=== PATIENT | male | born 1975 | race Caucasian/White ===

== ENCOUNTER 2018-06-15 09:37 | Observation (INO) ==
[2018-06-15] MEDS ORDERED: Isovue-370 500 ML INFUS..BTL IV ONE ×3 (09:43→11:03)
[2018-06-15] MEDS ORDERED: *HR* HYDROmorphone (PF) 1 MG/ML SYRINGE IVP ONE ×3 (09:45→12:24)
--- NOTE | 2018-06-15 09:51 | Emergency Department Note ---
Disposition Clinical Impression: Kidney stone Chest pain Qualifiers: Chest pain type: unspecified Qualified Code(s): R07.9 - Chest pain, unspecified Back pain Qualifiers: Back pain location: low back pain Chronicity: acute Back pain laterality: left Sciatica presence: without sciatica Qualified Code(s): M54.5 - Low back pain Disposition: Admitted As Inpatient Condition: Good Instructions: Chest Pain (ED), Flank Pain (ED), Kidney Stones (ED) Referrals: NONE,PCP [Non-Partnered Physician] - Forms: ED Satisfaction Letter Time of Disposition: 12:15 General Adult HPI - General Stated complaint: CP Time Seen by Provider: 06/15/18 09:42 Source: patient Limitations: no limitations Nursing Notes Reviewed: Yes Vital Signs Reviewed: Yes - History of Present Illness HPI Narrative: Patient is a 42-year-old male that presents emergency department due to chest pain. Patient states that this started just prior to arrival. Patient states that it was a 10 out of 10 prior to getting in the ambulance. Patient was given nitroglycerin and aspirin during transport. Patient states his did not really provide any relief. Patient states that his chest pain goes into his back. Patient also states that he is having significant low back pain. Patient states that he has been short of breath, diaphoretic and nauseated with his chest pain. Patient denies any other history of cardiac issues. Patient denies having a stress test or cardiac catheterization in the past. Pain Scale: 10 - Related Data Previous Rx's Medication Instructions Recorded Cyclobenzaprine [Flexeril] 10 mg PO BID #20 tablet 05/02/18 Meloxicam [Mobic] 7.5 mg PO BID #20 tablet 05/02/18 Allergies Allergy/AdvReac Type Severity Reaction Status Date / Time Penicillins AdvReac Rash Verified 05/02/18 11:17 All systems ED: reviewed and negative except as stated. Constitutional: Reports: other (Sweaty) Cardiovascular: Reports: chest pain Respiratory: Reports: dyspnea Gastrointestinal: Reports: nausea Musculoskeletal: Reports: back pain Past Medical History - Past Medical History Medical history: Reports: no medical history Psychiatric history: Reports: no psych history - Social History Smoking Status: Current every day smoker Smokeless Tobacco Status: No Alcohol use: Reports: rarely Drug use: Reports: none Physical Exam - General Limitations: no limitations General appearance: alert, anxious - Head Head exam: atraumatic, normocephalic - Eye Eye exam: Present: normal appearance, EOMI - Neck Neck exam: Present: normal inspection, full ROM, trachea midline - Chest Chest inspection: Present: normal inspection, symmetric chest wall rise - Respiratory Respiratory exam: Present: normal lung sounds bilaterally. Absent: respiratory distress, wheezes - Cardiovascular Cardiovascular exam: Present: normal rhythm, tachycardia, normal heart sounds, +S1, +S2 - Abdominal Exam Abdominal exam: Present: soft, Non-Tender, normal bowel sounds - Neurological Exam Neurological exam: Present: alert, oriented X3 - Psychiatric Psychiatric exam: Present: normal affect, anxious - Skin Skin exam: Present: warm, dry, intact Course Vital Signs Temperature 98.1 F 06/15/18 09:40 Pulse Rate 75 06/15/18 09:40 Respiratory Rate 20 06/15/18 09:40 Blood Pressure 148/101 06/15/18 09:40 O2 Sat by Pulse Oximetry 100 06/15/18 09:40 Temperature 98.1 F 06/15/18 09:40 Pulse Rate 68 06/15/18 11:11 Respiratory Rate 20 06/15/18 09:40 Blood Pressure 156/96 06/15/18 11:11 O2 Sat by Pulse Oximetry 98 06/15/18 11:11 Oxygen Delivery Oxygen Delivery Room Air Medical Decision Making - [facility] Narrative Medical decision making narrative: Due the patient's into the emergency department with significant chest pain and low back pain is concern for possible cardiac involvement. We will obtain a chest pain workup including a CBC, BMP, troponin chest x-ray and EKG. Due to the patient having chest pain plus low back pain that is been excruciating and pain radiating into his back there is concern for possible aortic dissection. We will obtain CTA of the chest abdomen pelvis to evaluate for possible dissection. Patient's laboratory testing was relatively unremarkable other than a mild leukocytosis of 11.3. However this is a nonspecific finding. EKG did not show any acute ischemic changes. Patient was found to have a 9 mm stone on the left. There is mild obstruction. I called and spoke with the on-call urologist Dr. Deyr and he was in agreement with the patient being admitted to medicine with a urology consult. Called and spoke the admitting hospitalist Dr. Alarcon and she is accepted the patient to their service. Patient be admitted to the hospital at this time for further evaluation and management. - Medical Records Medical records reviewed: Yes I reviewed the patient's medical records. - Lab Data Lab results reviewed: Yes I reviewed the patient's lab results. Result diagrams: 06/15/18 09:53 06/15/18 10:02 Lab Results 06/15/18 06/15/18 06/15/18 Range/Units 09:43 09:53 10:02 WBC 11.3 H (4.3-11.1) K/mcL RBC 4.66 (4.19-5.50) M/mcL Hgb 15.4 (12.9-16.9) g/dL Hct 44.8 (37.5-50.1) % MCV 96.1 (83.0-100.0) fL MCH 33.0 (28.0-33.3) pg MCHC 34.4 (31.6-35.5) g/dL RDW 13.0 (11.5-14.5) % Plt Count 215 (140-400) K/mcL MPV 10.5 (9.4-12.4) fL Immature Gran % 0.5 (0-4) % Seg Neutrophils % 79.2 % Lymphocytes % 12.0 % Monocytes % 7.0 % Eosinophils % 0.9 % Basophils % 0.4 % Neutrophils # 8.9 (1.6-8.9) K/mcL Lymphocytes # 1.4 (0.6-4.6) K/mcL Monocytes # 0.8 (0.0-1.3) K/mcL Eosinophils # 0.1 (0.0-0.6) K/mcL Basophils # 0.1 (0.0-0.2) K/mcL PT 11.1 (9.4-12.1) Seconds INR 1.0 APTT 28.0 (26.0-36.0) Seconds Sodium 138 (136-145) mEq/L Potassium 3.9 (3.5-5.1) mEq/L Chloride 106 (98-107) mEq/L Carbon Dioxide 25 (23-29) mEq/L BUN 15 (6-20) mg/dL Creatinine 1.18 (0.70-1.30) mg/dL Est GFR ( Amer) > 60 (> 60) Est GFR (Non-Af Amer) > 60 (> 60) BUN/Creatinine Ratio 13 (6-26) Glucose 114 H (70-105) mg/dL Calculated Osmolality 288 (280-300) Calcium 8.9 (8.6-10.3) mg/dL Troponin I < 0.03 (< 0.04) ng/mL - Radiology Data Radiology results reviewed: Yes I reviewed the patient's radiology results. Abdomen/Pelvis CTA 06/15/18 09:43 IMPRESSION: No acute abnormalities to the aorta. Specifically no evidence for aortic aneurysm or dissection. 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 This likely accounts for the abnormality noted on the chest x-ray earlier today. There is a 9 mm stone to the proximal left ureter just distal to the left UPJ with mild obstructive uropathy proximal to this. No acute findings to the chest. D/ / 06/15/2018 11:42:01 João Key MD / sergio Interpreting Provider: João Key MD Chest CTA 06/15/18 09:43 IMPRESSION: No acute abnormalities to the aorta. Specifically no evidence for aortic aneurysm or dissection. 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 This likely accounts for the abnormality noted on the chest x-ray earlier today. There is a 9 mm stone to the proximal left ureter just distal to the left UPJ with mild obstructive uropathy proximal to this. No acute findings to the chest. D/ / 06/15/2018 11:42:01 João Key MD / sergio Interpreting Provider: João Key MD Chest X-Ray 06/15/18 09:43 IMPRESSION: Right paratracheal soft tissue prominence may relate to vascular pedicle. Neoplastic process or lymphadenopathy cannot be excluded. Suggest further evaluation with CT chest with IV contrast. No acute cardiopulmonary process noted. D/ : / 06/15/2018 10:44:08 João Key MD / mitchell Interpreting Provider: João Key MD - EKG Data EKG #1 EKG attestation: Yes I reviewed and interpreted this EKG. EKG results narrative: EKG showed a sinus rhythm at a rate of 65 bpm, NJ interval 134, QRS duration of 86, QTc of 379 with a normal axis. There is no evidence of STEMI on EKG. This is compared with previous EKG on 01/17/97. No evidence of acute ischemic changes between these 2 EKGs.
--- NOTE | 2018-06-15 10:16 | Emergency Department Note ---
Disposition Clinical Impression: Chest pain Qualifiers: Chest pain type: unspecified Qualified Code(s): R07.9 - Chest pain, unspecified Disposition: Still a Patient Referrals: NONE,PCP [Primary Care Provider] - General Adult HPI - General Chief complaint: ED Chest Pain Stated complaint: CP Time Seen by Provider: 06/15/18 09:42 Source: patient Limitations: no limitations - History of Present Illness HPI Narrative: Attestation note ED attending note I examined this patient and my medical decision-making was reviewed with the emergency medicine resident Dr. Norbert Ward. I agree with the documented findings, disposition and treatment plan as described except to the extent set forth below. Briefly: 5-year-old male no prior cardiac history or vascular history presents via EMS for acute onset of chest and low back pain. He was given aspirin and nitroglycerin per EMS reviewed EKG transmitted from the field which was personal quality but no acute ST segment elevation or depressions. Patient has slightly elevated blood pressure without history of vascular disease in the family per se. Patient with an EKG 11 CT anterior chest abdomen and pelvis to check for aortic dissection although is possible he got 1 mg IV Dilaudid is getting screening labs and a chest x-ray as well. Providing 30 minutes critical care service with this patient disposition pending. Pain Scale: 10 - Related Data Previous Rx's Medication Instructions Recorded Cyclobenzaprine [Flexeril] 10 mg PO BID #20 tablet 05/02/18 Meloxicam [Mobic] 7.5 mg PO BID #20 tablet 05/02/18 Allergies Allergy/AdvReac Type Severity Reaction Status Date / Time Penicillins AdvReac Rash Verified 05/02/18 11:17 Constitutional: Reports: other (Sweaty) Cardiovascular: Reports: chest pain Respiratory: Reports: dyspnea Gastrointestinal: Reports: nausea Musculoskeletal: Reports: back pain Past Medical History - Past Medical History Medical history: Reports: no medical history Psychiatric history: Reports: no psych history - Social History Smoking Status: Current every day smoker Smokeless Tobacco Status: No Alcohol use: Reports: rarely Drug use: Reports: none Physical Exam - General Limitations: no limitations General appearance: alert, anxious Course Vital Signs Temperature 98.1 F 06/15/18 09:40 Pulse Rate 75 06/15/18 09:40 Respiratory Rate 20 06/15/18 09:40 Blood Pressure 148/101 06/15/18 09:40 O2 Sat by Pulse Oximetry 100 06/15/18 09:40 Temperature 98.1 F 06/15/18 09:40 Pulse Rate 75 06/15/18 09:40 Respiratory Rate 20 06/15/18 09:40 Blood Pressure 139/95 06/15/18 09:55 O2 Sat by Pulse Oximetry 99 06/15/18 09:49 Oxygen Delivery Oxygen Delivery Room Air
[2018-06-15 10:27] LABS: Basophils # 0.1 K/mcL (0.0-0.2); Basophils % 0.4 %; Eosinophils # 0.1 K/mcL (0.0-0.6); Eosinophils % 0.9 %; Hematocrit 44.8 % (37.5-50.1); Hemoglobin 15.4 g/dL (12.9-16.9); Immature Granulocytes % 0.5 % (0-4); Lymphocytes # 1.4 K/mcL (0.6-4.6); Mean Corpuscular HGB Conc 34.4 g/dL (31.6-35.5); Mean Corpuscular Volume 96.1 fL (83.0-100.0); Mean Platelet Volume 10.5 fL (9.4-12.4); Monocytes # 0.8 K/mcL (0.0-1.3); Neutrophils # 8.9 K/mcL (1.6-8.9); Platelet Count 215 K/mcL (140-400); Red Blood Count 4.66 M/mcL (4.19-5.50); Segmented Neutrophils % 79.2 %
[2018-06-15 10:35] LABS: Prothrombin Time 11.1 Seconds (9.4-12.1)
[2018-06-15 10:50] LABS: Troponin I < 0.03 ng/mL (< 0.04)
[2018-06-15 10:53] LABS: BUN/Creatinine Ratio 13 (6-26); Blood Urea Nitrogen 15 mg/dL (6-20); Calcium 8.9 mg/dL (8.6-10.3); Carbon Dioxide 25 mEq/L (23-29); Chloride 106 mEq/L (98-107); Glucose 114 mg/dL (70-105); Osmolality,Calculated 288 (280-300); Potassium 3.9 mEq/L (3.5-5.1); Sodium 138 mEq/L (136-145); eGFR For Non-African Americans > 60 (> 60)
[2018-06-15] MEDS ORDERED: Ondansetron 4 MG/2 ML VIAL IVP ONE (12:25)
--- NOTE | 2018-06-15 13:05 | Internal Med History&Physical ---
Date of Encounter: 06/15/18 Time of Encounter: 13:05 Internal Medicine - H&P: HPI Chief complaint: Low back pain History of present illness: Mr. Lopez is a 42 year old male Patient who presents emergency department due to 06/03 chest pain that radiated to his back who was treated with nitroglycerin and aspirin during transport with no relief. Patient also complaining of significant low back pain associated with nausea. Patient denies any other history of cardiac history. He was evaluated by the ER staff and an Obstructing 9 mm proximal left ureteral calculus with significant hydronephrosis was noted. Urology consulted and cystoscopy is planned. The patient was admitted for further evaluation and management. Past Med Surg Social Fam HX - Past Medical History Medical history: no medical history Psychiatric history: no psych history - Social History Smoking Status: Current every day smoker Smokeless Tobacco Status: No Alcohol use: rarely Drug use: none Internal Medicine - H&P: Meds No Known Home Drugs 06/15/18 [History] Allergy/AdvReac Type Severity Reaction Status Date / Time Penicillins AdvReac Rash Verified 06/15/18 12:52 All Systems PM: A 10-system review of systems was performed and is negative for pertinent findings except as documented above in the HPI. - Constitutional Constitutional: no chills, no fever(s), no night sweats - EENT Eyes: no change in vision, no discharge, no pain, no photophobia Ears: no ear discharge, no ear pain, no tinnitus Nose, mouth and throat: no dysphagia, no nasal discharge, no neck pain, no sore throat - Respiratory Respiratory: no cough, no dyspnea, no wheezing, no excessive phlegm production - Gastrointestinal Gastrointestinal: no abdominal pain, no diarrhea, no hematemesis, no hem atochezia, no melena, no nausea, no vomiting - Genitourinary Genitourinary ROS male: flank pain - Neurological Neurological ROS: no confusion, no convulsions, no focal weakness, no numbness, no tingling, no tremor(s) - Constitutional Vitals: Temp Pulse Resp BP Pulse Ox 98.1 F 65 20 129/84 98 06/15/18 09:40 06/15/18 12:35 06/15/18 09:40 06/15/18 12:35 06/15/18 12:35 General appearance: Present: A&O X 3 Exam: As Above - Head Head exam: Present: atraumatic, normocephalic - Neck Neck exam general surgery: Present: supple, trachea midline. Absent: lymphadenopathy - Respiratory Respiratory exam: Present: CTAB. Absent: accessory muscle use, rales, rhonchi, wheezes - Cardiovascular Cardiovascular exam: Present: RRR, +S1, +S2. Absent: diastolic murmur, gallop, rubs, systolic murmur - GI/Abdominal GI/Abdominal exam: Present: normal bowel sounds, soft, no peritoneal signs. Absent: distended, tenderness - Extremities Exam Extremities exam: Present: warm, radial pulses palpable and symmetrical. Absent: calf tenderness, cyanotic, pedal edema Internal Med - H&P Results - Labs CBC & Chem 7: 06/16/18 05:20 06/16/18 05:20 Labs: Short CBC 06/15/18 Range/Units 09:53 WBC 11.3 H (4.3-11.1) K/mcL Hgb 15.4 (12.9-16.9) g/dL Hct 44.8 (37.5-50.1) % Plt Count 215 (140-400) K/mcL Neutrophils # 8.9 (1.6-8.9) K/mcL BMP 06/15/18 10:02 Sodium 138 Potassium 3.9 Chloride 106 Carbon Dioxide 25 BUN 15 Creatinine 1.18 Glucose 114 H Calcium 8.9 Cardiac Enzymes 06/15/18 Range/Units 10:02 Troponin I < 0.03 (< 0.04) ng/mL - Impressions ITS Impressions Abdomen/Pelvis CTA 06/15/18 09:43 IMPRESSION: No acute abnormalities to the aorta. Specifically no evidence for aortic aneurysm or dissection. 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 This likely accounts for the abnormality noted on the chest x-ray earlier today. There is a 9 mm stone to the proximal left ureter just distal to the left UPJ with mild obstructive uropathy proximal to this. No acute findings to the chest. D/ / 06/15/2018 11:42:01 João Key MD / sergio Interpreting Provider: João Key MD Chest CTA 06/15/18 09:43 IMPRESSION: No acute abnormalities to the aorta. Specifically no evidence for aortic aneurysm or dissection. 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 This likely accounts for the abnormality noted on the chest x-ray earlier today. There is a 9 mm stone to the proximal left ureter just distal to the left UPJ with mild obstructive uropathy proximal to this. No acute findings to the chest. D/ / 06/15/2018 11:42:01 João Key MD / sergio Interpreting Provider: João Key MD Chest X-Ray 06/15/18 09:43 IMPRESSION: Right paratracheal soft tissue prominence may relate to vascular pedicle. Neoplastic process or lymphadenopathy cannot be excluded. Suggest further evaluation with CT chest with IV contrast. No acute cardiopulmonary process noted. D/ / 06/15/2018 10:44:08 João Key MD / mitchell Interpreting Provider: João Key MD - Assessment and plan (1) Kidney stone Current Visit: Yes Status: Acute Assessment and plan: Obstructing 9 mm proximal left ureteral calculus with significant hydronephrosis was noted on CT sacn, Urology consulted and cystoscopy is planned. (2) Hydronephrosis due to obstruction of ureter Current Visit: Yes Status: Acute Assessment and plan: Urology was consulted for further evaluation and management. (3) Chest pain Current Visit: Yes Status: Acute Assessment and plan: Atypical chest pain, no ECG changes, normal cardiac enzymes, We will trend cardiac enzymes, however cardiac component is less likely. Qualifiers: Chest pain type: unspecified Qualified Code(s): R07.9 - Chest pain, unspecified (4) DVT prophylaxis Current Visit: Yes Status: Acute Assessment and plan: The patient is ambulatory. We will place SCDs - Time Spent With Patient Total time spent is greater than 50% in coordination of care (as documented) at patient's floor/unit and/or counseling patient:
[2018-06-15] MEDS ORDERED: Naloxone 0.4 MG/ML INJ IVP PRN (13:46)
[2018-06-15] MEDS ORDERED: Acetaminophen 325 MG TABLET PO PRN (13:58)
[2018-06-15] MEDS: 0.9 % Sodium Chloride 1,000 ML IVC SCH (14:21)
[2018-06-15 15:32] LABS: Chol/HDL Ratio 4.1 (0-4.9)
[2018-06-15] MEDS ORDERED: Ondansetron 4 MG/2 ML VIAL IVP PRN (17:34)
[2018-06-15] MEDS: Ketorolac 30 MG/ML VIAL IVP PRN ×2 (17:39→22:10)
[2018-06-15] MEDS: Nicotine 21 MG PATCH.TD24 TD SCH (17:40)
[2018-06-15] MEDS ORDERED: Ondansetron 4 MG/2 ML VIAL IVP SCH (18:00)
--- NOTE | 2018-06-15 18:07 | Urology - Consult Note ---
Date of Encounter: 06/15/18 Time of Encounter: 18:02 - Assessment and Plan (1) Ureteral calculus, left Current Visit: Yes Status: Acute Assessment and plan: Obstructing 9 mm proximal left ureteral calculus with significant hydro-and pain. Discussed options for management. Discussed risks benefits alternatives of staged address with stent placement during this admission followed by outpatient lithotripsy. Patient is currently eating thus we will schedule procedure tomorrow. Plan: Cystoscopy, left retrograde ureteral pyelography, left double-J stent placement tomorrow under anesthesia. Follow-up for definitive stone address as outpatient post stent placement (2) Hydronephrosis due to obstruction of ureter Current Visit: Yes Status: Acute Assessment and plan: Obstructing 9 mm proximal left ureteral calculus with significant hydro-and pain. Discussed options for management. Discussed risks benefits alternatives of staged address with stent placement during this admission followed by outpatient lithotripsy. Patient is currently eating thus we will schedule procedure tomorrow. Plan: Cystoscopy, left retrograde ureteral pyelography, left double-J stent placement tomorrow under anesthesia. Follow-up for definiti ve stone address as outpatient post stent placement Urology CN:NAYANA Consult date: 06/15/18 Reason for consult Urology: Hydronephrosis History of present illness: Mr. Lopez is a 42 year old male Patient who presents emergency department due to 10/10 chest pain that radiated to his back who was treated with nitroglycerin and aspirin during transport with no relief. Patient states that his chest pain goes into his back. Patient also states that he is having significant low back pain. Patient states that he has been short of breath, diaphoretic and nauseated with his chest pain. Patient denies any other history of cardiac issues. Patient denies having a stress test or cardiac catheterization in the past. Patient ended up with a CT showing a 9 mm obstructing proximal right ureteral calculus with hydronephrosis. She denies prior history of stones. Reports pain is constant with waxing waning intensity. Patient has exacerbating or remitting factors. He denies fevers chills or other signs of infection. Is uncomfortable but appears nontoxic. He is eating. Past Med Surg Social Fam HX - Past Medical History Medical history: no medical history Psychiatric history: no psych history - Social History Smoking Status: Current every day smoker Packs per day: 1.5 Smokeless Tobacco Status: No Alcohol use: rarely Drug use: none Medications and Allergies No Known Home Drugs 06/15/18 [History] Allergy/AdvReac Type Severity Reaction Status Date / Time Penicillins AdvReac Rash Verified 06/15/18 12:52 Review of Systems - Constitutional no chills, no fever(s) - EENT Nose, mouth and throat: no dizziness - Cardiovascular no chest pain - Respiratory no dyspnea - Gastrointestinal abdominal pain, no fecal incontinence, no nausea - Genitourinary flank pain, no hematuria - Musculoskeletal as per HPI, back pain - Integumentary no erythema, no rash - Neurological no confusion, no weakness - Psychiatric no anxiety, no confusion - Allergic/Immunologic no throat swelling, no wheezing Exam Initial Vital Signs Temp Pulse Resp BP Pulse Ox 98.1 F 75 20 148/101 100 06/15/18 09:40 06/15/18 09:40 06/15/18 09:40 06/15/18 09:40 06/15/18 09:40 - General physical appearance Present: well developed, well nourished, moderate pain - Eyes Present: normal ocular movement - ENT Present: normal nares, no congestion - Neck Present: no masses, trachea midline - Respiratory Present: normal respiratory effort - Cardiovascular Cardiovascular exam IM: RRR - Abdomen Abdomen: Present: soft, tender - Integumentary Present: no rash, no growths, no abnormal pigmentation - Neurologic Present: normal coordination. Absent: disoriented, confused - Musculoskeletal Present: normal gait Urology Results - Labs 06/15/18 09:53 06/15/18 10:02 Abnormal lab results WBC 11.3 K/mcL (4.3-11.1) H 06/15/18 09:53 Glucose 114 mg/dL (70-105) H 06/15/18 10:02 HDL Cholesterol 34 mg/dL (40-59) L 06/15/18 14:29 Diabetes panel 06/15/18 06/15/18 Range/Units 10: 14:29 Sodium 138 (136-145) mEq/L Potassium 3.9 (3.5-5.1) mEq/L Chloride 106 (98-107) mEq/L Carbon Dioxide 25 (23-29) mEq/L BUN 15 (6-20) mg/dL Creatinine 1.18 (0.70-1.30) mg/dL Glucose 114 H (70-105) mg/dL Calcium 8.9 (8.6-10.3) mg/dL Triglycerides 104 (< 150) mg/dL HDL Cholesterol 34 L (40-59) mg/dL Calcium panel 06/15/18 Range/Units 10:02 Calcium 8.9 (8.6-10.3) mg/dL Pituitary panel 06/15/18 Range/Units 10:02 Sodium 138 (136-145) mEq/L Potassium 3.9 (3.5-5.1) mEq/L Chloride 106 (98-107) mEq/L Carbon Dioxide 25 (23-29) mEq/L BUN 15 (6-20) mg/dL Creatinine 1.18 (0.70-1.30) mg/dL Glucose 114 H (70-105) mg/dL Calcium 8.9 (8.6-10.3) mg/dL Adrenal panel 06/15/18 Range/Units 10:02 Sodium 138 (136-145) mEq/L Potassium 3.9 (3.5-5.1) mEq/L Chloride 106 (98-107) mEq/L Carbon Dioxide 25 (23-29) mEq/L BUN 15 (6-20) mg/dL Creatinine 1.18 (0.70-1.30) mg/dL Glucose 114 H (70-105) mg/dL Calcium 8.9 (8.6-10.3) mg/dL All other labs normal. - Imaging CT scan - abdomen: image reviewed (Images reviewed and interpreted independently) Consult Discharge Plan - Plan Referrals: NONE,PCP [Primary Care Provider] -
[2018-06-16] MEDS: 0.9 % Sodium Chloride 1,000 ML IVC SCH (00:10)
[2018-06-16 00:23] LABS: Bilirubin,Urine Negative (Negative); Blood,Urine Moderate (Negative); Clarity,Urine Clear (Clear); Color,Urine Yellow (Yellow); Glucose,Urine (UA) 250 mg/dL (Normal); Ketones,Urine Negative (Negative); Leukocyte Esterase,Urine Trace (Negative); Nitrite,Urine Negative (Negative); Protein,Urine Trace mg/dL (Neg-Trace); Specific Gravity,Urine 1.028 (1.010-1.025); Urobilinogen,Urine Normal (Normal)
[2018-06-16 00:25] LABS: Bacteria,Urine None Seen per hpf (None-Few); Hyaline Casts,Urine None Seen per lpf (None-Few); RBC,Urine 15-30 per hpf (0-3); Squamous Epithelial Cell,Urine Many per lpf (None-Few)
[2018-06-16] MEDS: *HR* FentaNYL (PF) 100 MCG/2 ML VIAL IVP PRN ×2 (00:42→06:00)
[2018-06-16 05:50] LABS: Basophils % 0.4 %; Eosinophils # 0.2 K/mcL (0.0-0.6); Eosinophils % 1.9 %; Hemoglobin 14.1 g/dL (12.9-16.9); Immature Granulocytes % 0.4 % (0-4); Lymphocytes # 2.9 K/mcL (0.6-4.6); Lymphocytes % 32.1 %; Mean Corpuscular HGB Conc 34.4 g/dL (31.6-35.5); Mean Corpuscular Hemoglobin 33.2 pg (28.0-33.3); Mean Corpuscular Volume 96.5 fL (83.0-100.0); Mean Platelet Volume 10.9 fL (9.4-12.4); Monocytes # 0.9 K/mcL (0.0-1.3); Monocytes % 10.3 %; Neutrophils # 4.9 K/mcL (1.6-8.9); Platelet Count 187 K/mcL (140-400); Red Blood Count 4.25 M/mcL (4.19-5.50); Red Cell Distribution Width 12.9 % (11.5-14.5); Segmented Neutrophils % 54.9 %
[2018-06-16 06:12] LABS: Alanine Aminotransferase 16 Units/L (7-52); Albumin 3.6 g/dL (3.5-5.7); Albumin/Globulin Ratio 1.7 (1.1-2.2); Alkaline Phosphatase 69 Units/L (34-104); Aspartate Amino Transferase 13 Units/L (13-39); BUN/Creatinine Ratio 12 (6-26); Bilirubin,Total 0.4 mg/dL (0.3-1.0); Blood Urea Nitrogen 11 mg/dL (6-20); Calcium 8.3 mg/dL (8.6-10.3); Carbon Dioxide 24 mEq/L (23-29); Chloride 109 mEq/L (98-107); Globulin 2.1 g/dL (2.4-3.5); Glucose 94 mg/dL (70-105); Magnesium 1.9 mg/dL (1.6-2.6); Osmolality,Calculated 285 (280-300); Potassium 3.7 mEq/L (3.5-5.1); Sodium 138 mEq/L (136-145); Total Protein 5.7 g/dL (6.4-8.9); eGFR For Non-African Americans > 60 (> 60)
[2018-06-16] MEDS: Nicotine 21 MG PATCH.TD24 TD SCH (07:41)
--- NOTE | 2018-06-16 09:31 | Internal Med Progress Note ---
<DonalArtem gonzales W - Last Filed: 06/16/18 13:29> Date of Encounter: 06/16/18 Time of Encounter: 08:15 - Assessment and plan (1) Ureteral calculus, left Current Visit: Yes Status: Acute Assessment and plan: -no h/o of kidney stones or family h/o kidney stones -CT a/p: 9mm stone L ureter distal to L UPJ with mild obstruction -UA: moderate blood, trace leukocyte esterase, 15-30 RBC, 5-15 WBC, many epithelial cells -Urine culture not obtained -fentanyl 25mcg Q6 PRN, toradol 30mg Q6 PRN, and tylenol 1000mg Q6 PRN for pain -pt to have cystoscopy with stent placement per urology today -urology consulted -if pt is stable after surgery, he can be cleared for D/C -follow up outpatient with urologist (2) Hydronephrosis due to obstruction of ureter Current Visit: Yes Status: Acute Assessment and plan: -likely 2/2 to kidney stone -see plan for ureteral calculus, left (3) Chest pain Current Visit: Yes Status: Acute Assessment and plan: -likely referred pain 2/2 kidney stone and hydronephrosis -lipid panel unremarkable -CTA chest non-acute -troponins negative x4 -EKG: NSR, no evidence of STEMI -continue to monitor for any coronary sxs Qualifiers: Chest pain type: unspecified Qualified Code(s): R07.9 - Chest pain, unspecified; R07.8 - Other chest pain (4) Back pain Current Visit: Yes Status: Acute Assessment and plan: -likely 2/2 kidney stone and hydronephrosis -CT a/p: 9mm stone L ureter distal to L UPJ with mild obstruction -fentanyl 25mcg Q6 PRN, toradol 30mg Q6 PRN, and tylenol 1000mg Q6 PRN for pain -monitor Qualifiers: Back pain location: low back pain Chronicity: acute Back pain laterality: left Sciatica presence: without sciatica Qualified Code(s): M54.5 - Low back pain (5) DVT prophylaxis Current Visit: Yes Status: Acute Assessment and plan: -pt is ambulating well - Subjective Interval history: Pt seen at bedside today with present in room for follow up for chest pain and urolithiasis. Pt is relatively quiet on exam d/t just receiving a dose of fentanyl and answered most questions today. Overall feels a little bit better than upon admission. Pt understanding that he will have a cystoscopy with stent placement today. Denies any chest pain or shortness of breath today. Admits to some mild lower back pain, but states is worse when the fentanyl wears off. Denies nausea or vomiting. - Constitutional Vitals: Temp Pulse Resp BP Pulse Ox 97.6 F 63 15 126/84 97 06/16/18 06:48 06/16/18 06:48 06/16/18 06:48 06/16/18 06:48 06/16/18 07:43 General appearance: Present: A&O X 3, no acute distress - Head Head exam: Present: atraumatic, normocephalic - Eye Eye exam: Present: PERRL, conjuntiva pink, sclera anicteric Pupils: Present: PERRL - Neck Neck exam general surgery: Present: supple. Absent: lymphadenopathy - Respiratory Respiratory exam: Present: CTAB. Absent: accessory muscle use, rales, rhonchi, wheezes - Cardiovascular Cardiovascular exam: Present: RRR, +S1, +S2. Absent: diastolic murmur, gallop, rubs, systolic murmur - GI/Abdominal GI/Abdominal exam: Present: normal bowel sounds, soft, no peritoneal signs. Absent: distended, tenderness - Extremities Exam Extremities exam: Present: warm, radial pulses palpable and symmetrical. Absent: calf tenderness, cyanotic, pedal edema - Back Exam Back exam: Present: CVA tenderness (L) - Neurological Exam Neurological exam: Present: oriented X3, no focal deficits. Absent: facial droop, speech deficit - Skin Skin exam: Present: dry, intact Internal Medicine: Result - Labs CBC & Chem 7: 06/16/18 05:20 06/16/18 05:20 Labs: Short CBC 06/15/18 06/16/18 Range/Units 09:53 05:20 WBC 11.3 H 8.9 (4.3-11.1) K/mcL Hgb 15.4 14.1 (12.9-16.9) g/dL Hct 44.8 41.0 (37.5-50.1) % Plt Count 215 187 (140-400) K/mcL Neutrophils # 8.9 4.9 (1.6-8.9) K/mcL BMP 06/15/18 06/16/18 10:02 05:20 Sodium 138 138 Potassium 3.9 3.7 Chloride 106 109 H Carbon Dioxide 25 24 BUN 15 11 Creatinine 1.18 0.95 Glucose 114 H 94 Calcium 8.9 8.3 L Cardiac Enzymes 06/15/18 06/15/18 06/15/18 Range/Units 10:02 14:29 20:21 Troponin I < 0.03 < 0.03 < 0.03 (< 0.04) ng/mL 06/16/18 Range/Units 05:20 Troponin I < 0.03 (< 0.04) ng/mL Liver Function 06/16/18 Range/Units 05:20 Total Bilirubin 0.4 (0.3-1.0) mg/dL AST 13 (13-39) Units/L ALT 16 (7-52) Units/L Alkaline Phosphatase 69 (34-104) Units/L Albumin 3.6 (3.5-5.7) g/dL Urine 06/16/18 Range/Units 00:06 Urine Color Yellow (Yellow) Urine Clarity Clear (Clear) Urine pH 6.0 (5.0-8.0) pH Units Ur Specific [place] 1.028 H (1.010-1.025) Urine Protein Trace (Neg-Trace) mg/dL Urine Glucose (UA) 250 H (Normal) mg/dL - ABG Interpretation ABG results: PT/INR, D-dimer PT 11.1 Seconds (9.4-12.1) 06/15/18 09:43 - Impressions Impressions Abdomen/Pelvis CTA 06/15/18 09:43 IMPRESSION: No acute abnormalities to the aorta. Specifically no evidence for aortic aneurysm or dissection. 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 This likely accounts for the abnormality noted on the chest x-ray earlier today. There is a 9 mm stone to the proximal left ureter just distal to the left UPJ with mild obstructive uropathy proximal to this. No acute findings to the chest. D/ / 06/15/2018 11:42:01 João Key MD / [facility] taker Interpreting Provider: João Key MD Chest CTA 06/15/18 09:43 IMPRESSION: No acute abnormalities to the aorta. Specifically no evidence for aortic aneurysm or dissection. 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 This likely accounts for the abnormality noted on the chest x-ray earlier today. There is a 9 mm stone to the proximal left ureter just distal to the left UPJ with mild obstructive uropathy proximal to this. No acute findings to the chest. D/ / 06/15/2018 11:42:01 João Key MD / [facility] Interpreting Provider: João Key MD Chest X-Ray 06/15/18 09:43 IMPRESSION: Right paratracheal soft tissue prominence may relate to vascular pedicle. Neoplastic process or lymphadenopathy cannot be excluded. Suggest further evaluation with CT chest with IV contrast. No acute cardiopulmonary process noted. D/ / 06/15/2018 10:44:08 João Key MD / [facility] Interpreting Provider: João Key MD Consult Discharge Plan - Plan Referrals: Mj Dyer [Partnered Physician] - 06/30/18 (Office will call with time. Thank you) Prescriptions: Phenazopyridine [Pyridium] 100 mg PO TID PRN 10 Days #30 tablet PRN Reason: dysuria <Amador Marquez - Last Filed: 06/16/18 16:03> - Assessment and plan (1) Kidney stone Current Visit: Yes Status: Acute (2) Hydronephrosis due to obstruction of ureter Current Visit: Yes Status: Acute (3) Chest pain Current Visit: Yes Status: Resolved Qualifiers: Chest pain type: other chest pain Qualified Code(s): R07.89 - Other chest pain; R07.8 - Other chest pain (4) Tobacco abuse Current Visit: Yes Status: Chronic - Constitutional Vitals: Temp Pulse Resp BP Pulse Ox 98.5 F 85 15 125/85 96 06/16/18 14:47 06/16/18 14:47 06/16/18 14:47 06/16/18 14:47 06/16/18 14:47 Internal Medicine: Result - Labs CBC & Chem 7: 06/16/18 05:20 06/16/18 05:20 Labs: Short CBC 06/16/18 Range/Units 05:20 WBC 8.9 (4.3-11.1) K/mcL Hgb 14.1 (12.9-16.9) g/dL Hct 41.0 (37.5-50.1) % Plt Count 187 (140-400) K/mcL Neutrophils # 4.9 (1.6-8.9) K/mcL BMP 06/16/18 05:20 Sodium 138 Potassium 3.7 Chloride 109 H Carbon Dioxide 24 BUN 11 Creatinine 0.95 Glucose 94 Calcium 8.3 L Cardiac Enzymes 06/15/18 06/15/18 06/16/18 Range/Units 14:29 20:21 05:20 Troponin I < 0.03 < 0.03 < 0.03 (< 0.04) ng/mL Liver Function 06/16/18 Range/Units 05:20 Total Bilirubin 0.4 (0.3-1.0) mg/dL AST 13 (13-39) Units/L ALT 16 (7-52) Units/L Alkaline Phosphatase 69 (34-104) Units/L Albumin 3.6 (3.5-5.7) g/dL Urine 06/16/18 Range/Units 00:06 Urine Color Yellow (Yellow) Urine Clarity Clear (Clear) Urine pH 6.0 (5.0-8.0) pH Units Ur Specific [place] 1.028 H (1.010-1.025) Urine Protein Trace (Neg-Trace) mg/dL Urine Glucose (UA) 250 H (Normal) mg/dL - ABG Interpretation ABG results: PT/INR, D-dimer PT 11.1 Seconds (9.4-12.1) 06/15/18 09:43 - Impressions Impressions Retrograde Pyelogram 06/16/18 00:00 IMPRESSION: Intraprocedural fluoroscopic spot images as above. See separate procedure report for more information. D/ / Delta Mcmahan / Delta Mcmahan Interpreting Provider: Delta Mcmahan - Attending Attestation The history, physical exam, and medical decision making was performed by the medical student either while I was physically present and actively involved or I personally re-performed the exam and medical decision making. I have verified the accuracy of the medical student's documentation with regards to the history, physical exam findings, and medical decision making on 06/16/18. Please see discharge summary of this date.
[2018-06-16] MEDS ORDERED: Clindamycin 600 MG/50 ML 600 MG/50 ML IV.SOLN IVPB ONE ×2 (10:08→10:35)
[2018-06-16] MEDS ORDERED: Isovue-300 30 ML VIAL ONE (10:18)
[2018-06-16] MEDS ORDERED: *HR* OxyCODONE Immed Rel 5 MG TABLET PO PRN ×2 (10:41→11:42)
[2018-06-16] MEDS ORDERED: Ondansetron 4 MG/2 ML VIAL IVP ONE ×2 (10:41→11:42)
[2018-06-16] MEDS ORDERED: *HR* HYDROmorphone (PF) 1 MG/ML SYRINGE IVP PRN ×2 (10:41→11:42)
[2018-06-16] MEDS ORDERED: *HR* Promethazine 25 MG/ML VIAL IVP PRN ×2 (10:41→11:42)
[2018-06-16] MEDS ORDERED: *HR* FentaNYL (PF) 100 MCG/2 ML VIAL ONE ×2 (10:47)
[2018-06-16] MEDS ORDERED: Dexamethasone 4 MG/ML VIAL ONE (10:47)
[2018-06-16] MEDS ORDERED: Lidocaine -MPF 2% 2 ML VIAL ONE (10:47)
[2018-06-16] MEDS ORDERED: *HR* Propofol 200 MG/20 ML VIAL IVP ONE ×2 (10:47)
[2018-06-16] MEDS ORDERED: *HR* Midazolam HCl 2 MG/2 ML VIAL ONE (10:47)
[2018-06-16] MEDS ORDERED: Ketorolac 30 MG/ML VIAL ONE (10:48)
--- NOTE | 2018-06-16 11:22 | Anesthesia Evaluation PreOp ---
Date of Encounter: 06/16/18 Time of Encounter: 10:04 - Past History Planned Operation: cystoscopy, left retrograde ureteroscopy, stent Cardiac History: Denies any Significant Hx Pulmonary History: Smoker, Asthma CLERGY MEMBER History: Denies Any Significant HX Other Medical History: Renal (obstructing proximal stone) Anesthesia History: No Prior Anesthetic Complications (never had anesthesia previously) Alcohol Use: rarely Drug use: none Medications and Allergies No Known Home Drugs 06/15/18 [History] Allergy/AdvReac Type Severity Reaction Status Date / Time Penicillins AdvReac Rash Verified 06/15/18 12:52 - Meds/Allergy Pre-op Review Medications Reviewed: Yes Allergies Reviewed: Yes Beta Blockers on Current Med List: No Anesthesia Results - Labs 06/16/18 05:20 06/16/18 05:20 Anesthesia Exam Last Vital Signs Temp 97.6 F 06/16/18 06:48 Pulse 63 06/16/18 06:48 Resp 15 06/16/18 06:48 BP 126/84 06/16/18 06:48 Pulse Ox 97 06/16/18 07:43 Weight: 93 kg NPO (# of Hours): > 8 hrs - HEENT Pupil (Motor): Pupils equal, EOMI Mallampati: III Teeth: Poor dentition Oral Opening: Greater than 3 - CLERGY MEMBER LOC: Oriented - Cardiac Rhythm: Regular Murmur: None - Pulmonary Breath Sounds: bilateral Clear Respiratory Effort: Symmetrical Anesthesia Assess/Plan ASA Score: 2 Modified Josr Scale for Level of Consciousness: Cooperative, oriented, and tranquil Anesthetic Plan: General Monitoring Plan: Standard Monitors Recovery Plan: PACU
[2018-06-16] MEDS ORDERED: Ringers Solution, Lactated 1,000 ML ONE (11:25)
--- NOTE | 2018-06-16 11:28 | Operative Note ---
Date of procedure: 06/16/18 Pre-op diagnosis: le Post-op diagnosis: same Procedure: Cystoscopy, left retrograde ureteral pyelography, left double-J ureteral stent placement, intraoperative interpretation of all fluoroscopic images in real time to facilitate procedure Implants: 6 x 26 left ureteral double-J stent Complications: None Anesthesia: GETA Surgeon: Mj Dyer Was there an material assistant present: No Estimated blood loss (cc): 0 IV fluids (cc): 100 Specimen: none Condition: stable Disposition: PACU Procedure in Detail: The patient was brought to the operating theater identified by name, date of and administered a general anesthetic. The patient was positioned in lithotomy prepped and draped in normal sterile fashion. The cystoscope was inserted into the urethral meatus and advanced toward the bladder under direct visualization. There were no mucosal abnormalities. Using an open-ended catheter a left retrograde ureteropyelogram was performed this revealed an obstructive stone in the proximal left ureter with hydro-nephrosis proximal to the stone. At this point a zip wire was advanced through the cystoscope into the left ureter and around the stone into the left renal pelvis. Over the wire a 6 x 26 double-J stent was advanced under fluoroscopic guidance. Once the stent was felt to be in good position the Glidewire removed possible distal and the stent was confirmed in good position fluoroscopically. All fluoroscopic images for this case were interpreted by surgeon in real time to facilitate the procedure. All instruments were removed from the patient's bladder. This ended the operative procedure. The patient. There is no blood loss. The patient was awakened in the operating theater without difficulty extubated and transferred to recovery in humanely stable condition
[2018-06-16] MEDS ORDERED: *HR* FentaNYL (PF) 100 MCG/2 ML VIAL IVP PRN (11:42)
[2018-06-16] MEDS ORDERED: Naloxone 0.4 MG/ML INJ IVP PRN (11:42)
[2018-06-16] MEDS ORDERED: Ondansetron 4 MG/2 ML VIAL IVP PRN (11:42)
[2018-06-16] MEDS ORDERED: Acetaminophen 325 MG TABLET PO PRN (11:42)
[2018-06-16] MEDS ORDERED: Ketorolac 30 MG/ML VIAL IVP PRN (11:42)
[2018-06-16 14:49] VITALS: BP 125/85
--- NOTE | 2018-06-16 14:55 | Discharge Summary ---
- NOTES TO OUTPATIENT PROVIDER Notes to Outpatient Provider: Presented to ED with chest pain and found to have obstructive kidney stone. Had stent placed and will follow up for further management. Date of Encounter: 06/16/18 Time of Encounter: 14:15 - Discharge Diagnosis (1) Kidney stone Priority: Secondary Status: Acute (2) Hydronephrosis due to obstruction of ureter Priority: Primary Status: Acute (3) Chest pain Priority: Secondary Status: Resolved Qualifiers: Chest pain type: other chest pain Qualified Code(s): R07.89 - Other chest pain; R07.8 - Other chest pain (4) Tobacco abuse Priority: Secondary Status: Chronic Hospital course: Mr. Lopez is a 42 year old male with no significant medical history presented to ED with chest pain. Found to have obstructing ureteral stone and was placed in observation. Mr Lopez was placed in observation for obstructive ureteral stone. He was given pain medication and seen by urology. He underwent stent placement today. Currently his pain is controlled. He is afebrile and ready for discharge home with outpatient follow up. Discharge discussed with: patient Time spent discussing smoking cessation with patient: 3 to 10 minutes - Time Spent with Patient Total time spent providing and/or coordinating discharge services: 25min - Discharge Medications Prescriptions: Phenazopyridine [Pyridium] 100 mg PO TID PRN 10 Days #30 tablet PRN Reason: dysuria Home Medications: Phenazopyridine [Pyridium] 100 mg PO TID PRN 10 Days #30 tablet 06/16/18 [Rx] Allergies/Adverse Reactions: Allergy/AdvReac Type Severity Reaction Status Date / Time Penicillins AdvReac Rash Verified 06/15/18 12:52 Date of admission: 06/15/18 12:32 Primary care physician: PCP NONE Consults: 06/15/18 11:58 Consult to Urology [CONS] Stat Consulting Provider: Urology Lorna Reason for Consult: ureteral stone Time Notified: 11:58 Call Completed: Yes Discharging clinician: Amador Marquez Anticipated date of discharge: 06/16/18 - Constitutional Vitals: Temp Pulse Resp BP Pulse Ox 98.5 F 85 15 125/85 96 06/16/18 14:47 06/16/18 14:47 06/16/18 14:47 06/16/18 14:47 06/16/18 14:47 General appearance: Present: A&O X 3, answers questions appropriately Exam: See below - Head Head exam: Present: normocephalic - Eye Eye exam: Present: EOMI, conjuntiva pink - ENT ENT exam: Present: mucous membranes moist - Respiratory Respiratory exam: Present: CTAB. Absent: rales, rhonchi, wheezes - Cardiovascular Cardiovascular exam: Present: RRR. Absent: tachycardia - GI/Abdominal GI/Abdominal exam: Present: soft. Absent: tenderness - Extremities Exam Extremities exam: Present: warm. Absent: tenderness - Neurological Exam Neurological exam: Present: alert, oriented X3 - Skin Skin exam: Present: dry, warm - Patient Status Disposition: Home, Self-Care Condition: Good Functional capacity at discharge: independent ambulation Overall status at discharge: patient is progressing back to baseline - Discharge Instructions Follow Up With: Mj Dyer [Partnered Physician] - 06/30/18 (Office will call with time. Thank you) Forms: Inpatient Work/School Release - Diet and Activity Activity: increase activity as tolerated Diet: advance to your usual diet
--- NOTE | 2018-06-16 14:59 | Anesthesia Evaluation Post Op ---
Date of Encounter: 06/16/18 Time of Encounter: 11:40 - Vital Signs Vital Signs: Last Vital Signs Temp 98.5 F 06/16/18 14:47 Pulse 85 06/16/18 14:47 Resp 15 06/16/18 14:47 BP 125/85 06/16/18 14:47 Pulse Ox 96 06/16/18 14:47 - Lungs Lungs: Clear Ascult./Percussion - Airway Airway: Non-obstructed - Cardiovascular Regular Rate - Mental Status Mental Status: Alert & Oriented, Answers Appropriately - Pain Pain Scale: 2 - Nausea Vomiting Nausea Vomiting: Not Present - Hydration Hydration: NPO - Discharge PostOp Status: Transfer Patient to floor
[2018-06-17] MEDS ORDERED: Nicotine 21 MG PATCH.TD24 TD SCH (09:00)
--- NOTE | 2018-06-19 15:53 | Electrocardiograph Report ---
[place] [id number] Test Date: 2018-06-15 Pat Name: Jasvir Lopez Department: [id number] Room: 3A56 Gender: M [employer]il [employer] Worker: : 1975 Requested By: Abdoul Robledo Order Number: [id number] Reading MD: Shelton Potter Measurements Intervals [place] Rate: 65 P: 38 WV: 134 QRS: 58 QRSD: 86 T: 50 QT: 364 QTc: 379 Interpretive Statements Sinus rhythm Possible left ventricular hypertrophy ST changes suggests early repolarization Electronically Signed On 06-19-2018 15:51:12 EDT by Shelton Potter
== END 2018-06-16 16:22 | disposition home or self-care (01) ==
LOC: EMEROOARM 09:37 → 3ANU 09:37 → SUATTDRO 12:32 → 3ANU 13:19
PROVIDERS: ADMIT Internal Medicine Nephrology; ATTEND Internal Medicine